=== PATIENT | male | born 2000 | race Caucasian/White ===

== ENCOUNTER 2018-06-08 15:13 | Emergency (ER) | payer SELFPAY ==
[~2018-06-08] VITALS: Ht 190.5 cm; Wt 79.4 kg
[2018-06-08] MEDS ORDERED: KETOROLAC 30 MG/ML VIAL IVP ONE (16:00)
[2018-06-08] MEDS ORDERED: NS IV 1000 ML 1,000 ML IV SCH (16:00)
--- NOTE | 2018-06-08 16:07 | ED Abdominal Pain ---
General Chief Complaint: -Male Stated Complaint: RT GROIN PAIN, LOW BACK PAIN, DARK URINE Nursing Triage Note: Ambulatory to rm 1. Pt reports R sided abdominal pain that began on Friday. Pt reports needing to sometimes strain to urinate which then causes the urine to turn dark. Pt reports same thing happened approximately 1 month ago, but then went away and pt did not seek treatment at that time. Sepsis Screen: No Definite Risk Source of Information: Patient (MARCO KHAN MD) History of Present Illness Date Seen by Provider: Jun 08, 2018 Time Seen by Provider: 15:50 18 y/o M with no PMH presents with RLQ non-radiating, moderate to severe constant abdominal pain. He has noticed dark urination with this. No nausea, vomiting. No change in appetite. No sick contacts. No solid food today. No prior history of kidney stones. (MARCO KHAN MD) Allergies and Home Medications Allergies Coded Allergies: No Known Drug Allergies (Unverified , 06/08/18) Patient Home Medication List Home Medication List Reviewed: Yes (MARCO KHAN MD) Review of Systems Review of Systems Constitutional: No chills, No fever EENTM: No Blurred Vision, No Double Vision Respiratory: Denies Cough, Denies Shortness of Air Cardiovascular: Denies Chest Pain, Denies Edema Gastrointestinal: See HPI, Abdominal Pain; Denies Diarrhea, Denies Nausea, Denies Poor Appetite, Denies Vomiting Genitourinary: Denies Burning, Denies Flank Pain; Hematuria; Denies Pain Musculoskeletal: No back pain, No joint pain, No muscle pain Skin: No lesions, No rash (MARCO KHAN MD) Past Xdlvldy-Jorylr-Azzxim Hx Past Med/Social Hx: Reviewed Nursing Past Med/Soc Hx (MARCO KHAN MD) Patient Social History Alcohol Use: Denies Use Recreational Drug Use: No Smoking Status: Never a Smoker 2nd Hand Smoke Exposure: No Recent Foreign Travel: No Contact w/Someone Who Travel: No Recent Infectious Disease Expo: No Recent Hopitalizations: No Physical Abuse: No Sexual Abuse: No (MARCO KHAN MD) Past Medical History Surgeries: Yes (tubes in ears) Respiratory: No Cardiac: No Neurological: No Genitourinary: No Gastrointestinal: No Musculoskeletal: No Endocrine: No HEENT: No Cancer: No Psychosocial: No Blood Disorders: No Adverse Reaction/Blood Tranf: No (MARCO KHAN MD) Physical Exam Vital Signs Vital Signs - First Documented 06/08/18 15:47 Temp 97.7 Pulse 61 Resp 17 B/P (MAP) 114/65 (81) Pulse Ox 98 O2 Delivery Room Air (RADHIKA ZEPEDA DO) Vital Signs Capillary Refill : Less Than 3 Seconds (MARCO KHAN MD) Height/Weight/BMI Height: 6'3.00" Weight: 175lbs. oz. 79.492538zv; BMI Method:Stated General Appearance: WD/WN, no apparent distress HEENT: PERRL/EOMI, pharynx normal Neck: non-tender, full range of motion, supple, normal inspection Respiratory: chest non-tender, lungs clear, normal breath sounds, no respiratory distress, no accessory muscle use Cardiovascular: normal peripheral pulses, regular rate, rhythm, no edema, no gallop, no JVD, no murmur Gastrointestinal: soft; No no pulsatile mass, No distended; guarding ( voluntary RLQ); No rebound; tenderness (RLQ); No mass Extremities: non-tender, no pedal edema, no calf tenderness Back: normal inspection, no CVA tenderness, no vertebral tenderness Male: no hernia Neurologic/Psychiatric: alert, normal mood/affect, oriented x 3 Skin: normal color, warm/dry (MARCO KHAN MD) Progress/Results/Core Measures Results/Orders Lab Results Laboratory Tests Test 06/08/18 16:10 06/08/18 17:20 Range/Units White Blood Count 5.0 4.3-11.0 10^3/uL Red Blood Count 5.15 4.35-5.85 10^6/uL Hemoglobin 15.6 13.3-17.7 G/DL Hematocrit 46 40-54 % Mean Corpuscular Volume 90 80-99 FL Mean Corpuscular Hemoglobin 30 25-34 PG Mean Corpuscular Hemoglobin Concent 34 32-36 G/DL Red Cell Distribution Width 12.0 10.0-14.5 % Platelet Count 249 130-400 10^3/uL Mean Platelet Volume 9.3 7.4-10.4 FL Neutrophils (%) (Auto) 65 42-75 % Lymphocytes (%) (Auto) 26 12-44 % Monocytes (%) (Auto) 7 0-12 % Eosinophils (%) (Auto) 1 0-10 % Basophils (%) (Auto) 1 0-10 % Neutrophils # (Auto) 3.2 1.8-7.8 X 10^3 Lymphocytes # (Auto) 1.3 1.0-4.0 X 10^3 Monocytes # (Auto) 0.4 0.0-1.0 X 10^3 Eosinophils # (Auto) 0.1 0.0-0.3 10^3/uL Basophils # (Auto) 0.0 0.0-0.1 10^3/uL Sodium Level 142 135-145 MMOL/L Potassium Level 4.5 3.6-5.0 MMOL/L Chloride Level 103 98-107 MMOL/L Carbon Dioxide Level 26 21-32 MMOL/L Anion Gap 13 5-14 MMOL/L Blood Urea Nitrogen 9 7-18 MG/DL Creatinine 0.98 0.60-1.30 MG/DL Estimat Glomerular Filtration Rate > 60 BUN/Creatinine Ratio 9 Glucose Level 99 70-105 MG/DL Calcium Level 10.0 8.5-10.1 MG/DL Corrected Calcium 8.5-10.1 MG/DL Total Bilirubin 1.1 H 0.1-1.0 MG/DL Aspartate Amino Transf (AST/SGOT) 17 5-34 U/L Alanine Aminotransferase (ALT/SGPT) 9 0-55 U/L Alkaline Phosphatase 55 40-136 U/L Total Protein 7.0 6.4-8.2 GM/DL Albumin 4.7 H 3.2-4.5 GM/DL Lipase 30 8-78 U/L Urine Color YELLOW Urine Clarity CLEAR Urine pH 7.5 5-9 Urine Specific [place] 1.015 L 1.016-1.022 Urine Protein NEGATIVE NEGATIVE Urine Glucose (UA) NEGATIVE NEGATIVE Urine Ketones NEGATIVE NEGATIVE Urine Nitrite NEGATIVE NEGATIVE Urine Bilirubin NEGATIVE NEGATIVE Urine Urobilinogen 0.2 NORMAL MG/DL Urine Leukocyte Esterase NEGATIVE NEGATIVE Urine RBC (Auto) 2+ H NEGATIVE Urine RBC 25-50 H /HPF Urine WBC RARE /HPF Urine Crystals PRESENT H /LPF Urine Amorphous Sediment MOD LENY PHOSPHATE H /LPF Urine Bacteria NONE /HPF Urine Casts NONE /LPF Urine Mucus MODERATE H /LPF Urine Culture Indicated NO (RADHIKA ZEPEDA DO) My Orders Orders - RADHIKA ZEPEDA DO Hydrocodone/Apap 5/325 Tablet (Lortab 5 (06/08/18 19:30) (RADHIKA ZEPEDA DO) Medications Given in ED Current Medications Medications Dose Ordered Sig/Marco Route Start Time Stop Time Status Last Admin Dose Admin Ketorolac Tromethamine 30 mg ONCE ONCE IVP 06/08/18 16:00 06/08/18 16:03 DC 06/08/18 16:20 30 MG (RADHIKA ZEPEDA DO) Vital Signs/I&O 06/08/18 15:47 Temp 97.7 Pulse 61 Resp 17 B/P (MAP) 114/65 (81) Pulse Ox 98 O2 Delivery Room Air (RADHIKA ZEPEDA DO) Blood Pressure Mean: 81 Progress Progress Note : Progress Note Primary ddx includes renal stone, appendicitis, vs other. (MARCO KHAN MD) Progress Note : Progress Note Sacha addendum: Patient has hematuria, calcification in the right mid pelvis with intermittent right lower abdominal pain that was constant during the day today. This is very likely ureteral colic even though there is no hydronephrosis seen on the CT scan. It does not appear to be appendicitis based on the intermittent nature of the pain, benign abdominal exam at this time, obvious hematuria. Patient will return for any worsening of his condition, otherwise he will follow up with urology as soon as possible. (RADHIKA ZEPEDA DO) Transfer of Care Time: 18:00 Care transferred to: Pending CT results, UA and re-evaluation (MARCO KHAN MD) Departure Impression Primary Impression: Hematuria Additional Impression: RLQ abdominal pain Disposition: 01 HOME, SELF-CARE Condition: Stable Departure-Patient Inst. Referrals: SAMANTHA LEBLANC MD (PCP) Primary Care Physician DARRYL DAY MD Patient Instructions: Kidney Stones (DC) Scripts Ondansetron (Ondansetron Odt) 8 Mg Tab.rapdis 8 MG PO TID PRN for NAUSEA/VOMITING for 7 Days, #20 TAB Prov: RADHIKA ZEPEDA DO 06/08/18 Hydrocodone/Acetaminophen ([place] 5-325 Tablet) 1 Each Tablet 1 TAB PO Q6H for Pain MDD 10 for 4 Days, #16 TAB Prov: RADHIKA ZEPEDA DO 06/08/18 MARCO KHAN MD Jun 08, 2018 16:07 RADHIKA ZEPEDA DO Jun 08, 2018 19:37
[2018-06-08 16:18] LABS: HEMATOCRIT 46 % (40-54); HEMOGLOBIN 15.6 G/DL (13.3-17.7); MEAN CORPUSCULAR HEMOGLOBIN 30 PG (25-34)
[2018-06-08 16:19] LABS: BASOPHILS % (AUTO) 1 % (0-10); EOSINOPHILS # (AUTO) 0.1 10^3/uL (0.0-0.3); EOSINOPHILS % (AUTO) 1 % (0-10); LYMPHOCYTES # (AUTO) 1.3 X 10^3 (1.0-4.0); LYMPHOCYTES % (AUTO) 26 % (12-44); MEAN CORPUSCULAR HGB CONC 34 G/DL (32-36); MEAN CORPUSCULAR VOLUME 90 FL (80-99); MEAN PLATELET VOLUME 9.3 FL (7.4-10.4); MONOCYTES # (AUTO) 0.4 X 10^3 (0.0-1.0); MONOCYTES % (AUTO) 7 % (0-12); NEUTROPHILS # (AUTO) 3.2 X 10^3 (1.8-7.8); NEUTROPHILS % (AUTO) 65 % (42-75); PLATELET COUNT 249 10^3/uL (130-400)
[2018-06-08 16:37] LABS: BUN/CREATININE RATIO 9; CARBON DIOXIDE 26 MMOL/L (21-32); CHLORIDE 103 MMOL/L (98-107); CREATININE SERUM 0.98 MG/DL (0.60-1.30); GFR ESTIMATED > 60; GLUCOSE 99 MG/DL (70-105); POTASSIUM 4.5 MMOL/L (3.6-5.0); SODIUM 142 MMOL/L (135-145)
[2018-06-08 16:38] LABS: ALANINE AMINOTRANSFERASE 9 U/L (0-55); ALBUMIN 4.7 GM/DL (3.2-4.5); ALKALINE PHOSPHATASE 55 U/L (40-136); BILIRUBIN,TOTAL 1.1 MG/DL (0.1-1.0); LIPASE 30 U/L (8-78)
[2018-06-08 18:17] LABS: AMORPHOUS SEDIMENT,UR MOD AMOR PHOSPHATE /LPF; BILIRUBIN,URINE NEGATIVE (NEGATIVE); CLARITY,URINE CLEAR; COLOR,URINE YELLOW; GLUCOSE, URINE (UA) NEGATIVE (NEGATIVE); KETONES,URINE NEGATIVE (NEGATIVE); LEUKOCYTE ESTERASE ,URINE NEGATIVE (NEGATIVE); NITRITE,URINE NEGATIVE (NEGATIVE); PH,URINE 7.5 (5-9); PROTEIN,URINE NEGATIVE (NEGATIVE); RBC,URINE 25-50 /HPF; UROBILINOGEN,URINE 0.2 MG/DL (NORMAL); WBC,URINE RARE /HPF
--- NOTE | 2018-06-08 19:04 | Diagnostic Imaging Report ---
PROCEDURE: CT abdomen and pelvis without contrast. TECHNIQUE: Multiple contiguous axial images were obtained through the abdomen and pelvis without the use of intravenous contrast. INDICATION: Right groin pain, dysuria. FINDINGS: The lung bases are clear. The liver appears normal. The gallbladder is present. The pancreas is normal. The spleen is not enlarged. The kidneys and adrenals appear normal. The aorta and IVC appear normal. The small bowel is not dilated. The colon is unremarkable. The appendix is normal. There is no retroperitoneal free air or free fluid. There is no lymphadenopathy. There are no pathologic fluid collections. There is a 3 mm calcification in the right midpelvis between the iliac artery and vein. This is probably a phlebolith. IMPRESSION: There is no evidence for hydronephrosis or appendicitis. Calcification in the right mid pelvis is likely a phlebolith rather than a ureteral calculus as there is no evidence of ureteral dilatation. Dictated by: Dictated on workstation # [id number]
[2018-06-08] MEDS ORDERED: HYDROcodone/APAP 5 MG/325 MG (LORTAB) TAB PO STA (19:30)
--- NOTE | 2018-06-08 19:30 | NUR ---
report given to williams cain
[2018-06-08] MEDS ORDERED: HYDR-4226 PO (19:35)
[2018-06-08] MEDS ORDERED: ONDA8TAB13 PO (19:35)
[2018-06-08 19:43] VITALS: BP 129/71
== END 2018-06-08 19:43 | disposition home or self-care (01) ==
LOC: ER FS 15:16
DX: R31.9 Hematuria, unspecified (principal); R10.31 Right lower quadrant pain; Z96.22 Myringotomy tube(s) status
CPT/HCPCS: 36415; 74176; 80053; 81000; 83690; 85025

== ENCOUNTER 2018-06-29 08:07 | Emergency (ER) | payer SELFPAY ==
[~2018-06-29] VITALS: Ht 190.5 cm; Wt 79.4 kg
[~2018-06-29 08:07] MED LIST: HYDR-4226 PO; ONDA8TAB13 PO
[2018-06-29] MEDS ORDERED: fentaNYL INJECTION 100 MCG/2 ML AMP IVP STA ×2 (08:52→09:40)
[2018-06-29] MEDS ORDERED: NS IV 1000 ML 1,000 ML IV STA (08:52)
[2018-06-29] MEDS ORDERED: ONDANSETRON 4 MG/2 ML (SDV) Z0FRAN IVP ONE (09:00)
--- NOTE | 2018-06-29 09:00 | ED Abdominal Pain ---
General Chief Complaint: Abdominal/GI Problems Stated Complaint: LRQ PAIN; VOMITING; SUPRAPUBIC PAIN Nursing Triage Note: ARRIVED VIA AMB TO ROOM 06. COMPLAINS OF LOWER MID ABD PAIN THAT HAS MOVED TO RLQ STARTING AT 0030. ALSO COMPLAINS OF N/V. Sepsis Screen: No Definite Risk Source of Information: Patient, Family Exam Limitations: No Limitations History of Present Illness Date Seen by Provider: Jun 29, 2018 Time Seen by Provider: 08:42 Initial Comments Here with right lower quadrant pain that started about 0030 this morning. Associated with nausea and vomiting. Was seen about a month ago for similar but different complaints and thought maybe he had a kidney stone. Had hematuria at that time. Friday he states this is different type pain and much worse. It started suprapubic or periumbilical and now has moved to the right side. It hurts when he moves or walks. He took ibuprofen 800 mg 2 hours ago and has had no relief pain. Timing/Duration: Other (8 hours) Severity/Quality: Moderate, Severe, Aching Location: Periumbilical, Suprapubic Radiation: [place] Activities at Onset: None Modifying Factors: Worsens With Movement Associated Symptoms: No Back Pain, No Fever/Chills; Nausea/Vomiting; No Shortness of Air, No Swelling/Mass in Abdomen, No Weakness Allergies and Home Medications Allergies Coded Allergies: No Known Drug Allergies (Unverified , 06/08/18) Home Medications Hydrocodone/Acetaminophen 1 Each Tablet, 1 TAB PO Q6H Prescribed by: RADHIKA ZEPEDA on 06/08/181934 Ondansetron 8 Mg Tab.rapdis, 8 MG PO TID PRN for NAUSEA/VOMITING Prescribed by: RADHIKA ZEPEDA on 06/08/181934 Patient Home Medication List Home Medication List Reviewed: Yes Review of Systems Review of Systems Constitutional: see HPI; No chills, No fever EENTM: No Symptoms Reported Respiratory: No Symptoms Reported Cardiovascular: No Symptoms Reported Gastrointestinal: See HPI, Abdominal Pain, Diarrhea, Nausea, Vomiting Genitourinary: No Symptoms Reported Musculoskeletal: no symptoms reported Skin: no symptoms reported Psychiatric/Neurological: No Symptoms Reported All Other Systems Reviewed Negative Unless Noted: Yes Past Jcdnhfn-Xfgfho-Swcyck Hx Past Med/Social Hx: Reviewed Nursing Past Med/Soc Hx Patient Social History Alcohol Use: Occasionally Uses Recreational Drug Use: No Smoking Status: Never a Smoker 2nd Hand Smoke Exposure: No Recent Foreign Travel: No Contact w/Someone Who Travel: No Recent Infectious Disease Expo: No Recent Hopitalizations: No Past Medical History Surgeries: Yes (tubes in ears) Respiratory: No Cardiac: No Neurological: No Genitourinary: Yes Kidney Stones Gastrointestinal: No Musculoskeletal: No Endocrine: No HEENT: No Cancer: No Psychosocial: No Integumentary: No Blood Disorders: No Adverse Reaction/Blood Tranf: No Family Medical History Reviewed Nursing Family Hx Physical Exam Vital Signs Vital Signs - First Documented 06/29/18 08:35 Temp 97.5 Pulse 52 Resp 16 B/P (MAP) 143/82 (102) Pulse Ox 96 O2 Delivery Room Air Capillary Refill : Less Than 3 Seconds Height/Weight/BMI Height: 6'3.00" Weight: 175lbs. oz. 79.350218ta; BMI Method:Stated General Appearance: WD/WN, mild distress HEENT: PERRL/EOMI, pharynx normal Neck: full range of motion, supple Respiratory: lungs clear, normal breath sounds Cardiovascular: regular rate, rhythm, no murmur Peripheral Pulses: 2+ Dorsalis Pedis (R), 2+ Left Dors-Pedis (L), 2+ Radial Pulses (R), 2+ Radial Pulses (L) Gastrointestinal: soft, guarding (right lower quadrant); No rebound; tenderness (suprapubic and right lower quadrant) Extremities: non-tender, normal inspection Back: normal inspection, no vertebral tenderness Neurologic/Psychiatric: alert, oriented x 3 Skin: normal color, warm/dry Progress/Results/Core Measures Results/Orders Lab Results Laboratory Tests Test 06/29/18 08:42 06/29/18 08:55 Range/Units White Blood Count 14.6 H 4.3-11.0 10^3/uL Red Blood Count 5.06 4.35-5.85 10^6/uL Hemoglobin 15.4 13.3-17.7 G/DL Hematocrit 44 40-54 % Mean Corpuscular Volume 88 80-99 FL Mean Corpuscular Hemoglobin 30 25-34 PG Mean Corpuscular Hemoglobin Concent 35 32-36 G/DL Red Cell Distribution Width 12.0 10.0-14.5 % Platelet Count 336 130-400 10^3/uL Mean Platelet Volume 8.8 7.4-10.4 FL Neutrophils (%) (Auto) 90 H 42-75 % Lymphocytes (%) (Auto) 6 L 12-44 % Monocytes (%) (Auto) 3 0-12 % Eosinophils (%) (Auto) 0 0-10 % Basophils (%) (Auto) 0 0-10 % Neutrophils # (Auto) 13.2 H 1.8-7.8 X 10^3 Lymphocytes # (Auto) 0.8 L 1.0-4.0 X 10^3 Monocytes # (Auto) 0.5 0.0-1.0 X 10^3 Eosinophils # (Auto) 0.0 0.0-0.3 10^3/uL Basophils # (Auto) 0.1 0.0-0.1 10^3/uL Neutrophils % (Manual) 81 % Lymphocytes % (Manual) 6 % Monocytes % (Manual) 5 % Eosinophils % (Manual) 0 % Basophils % (Manual) 0 % Band Neutrophils 8 % Blood Morphology Comment NORMAL Urine Color YELLOW Urine Clarity CLEAR Urine pH 6.5 5-9 Urine Specific [place] 1.025 H 1.016-1.022 Urine Protein TRACE NEGATIVE Urine Glucose (UA) NEGATIVE NEGATIVE Urine Ketones 1+ H NEGATIVE Urine Nitrite NEGATIVE NEGATIVE Urine Bilirubin 1+ H NEGATIVE Urine Urobilinogen 0.2 NORMAL MG/DL Urine Leukocyte Esterase NEGATIVE NEGATIVE Urine RBC (Auto) TRACE H NEGATIVE Urine RBC NONE /HPF Urine WBC RARE /HPF Urine Squamous Epithelial Cells 0-2 /HPF Urine Crystals PRESENT H /LPF Urine Calcium Oxalate Crystals 1+ /LPF Urine Bacteria NONE /HPF Urine Casts NONE /LPF Urine Mucus MODERATE H /LPF Urine Culture Indicated NO My Orders Orders - TETE FRANCIS MD Cbc No Diff (06/29/18 08:52) Cbc With Automated Diff (06/29/18 08:52) Ua Culture If Indicated (06/29/18 08:52) Ondansetron Injection (Zofran Injectio (06/29/18 09:00) Ns Iv 1000 Ml (Sodium Chloride 0.9%) (06/29/18 08:52) Saline Lock/Iv-Start (06/29/18 08:52) Fentanyl Injection (Sublimaze Injection (06/29/18 08:52) Manual Differential (06/29/18 08:42) Ct Abd/Pelv W (Appendicitis) (06/29/18 09:35) Fentanyl Injection (Sublimaze Injection (06/29/18 09:40) Iohexol Injection (Omnipaque 350 Mg/Ml 1 (06/29/18 10:00) Received Contrast (Hold Metformin- Contr (06/29/18 10:00) Sodium Chloride Flush (Catheter Flush Sy (06/29/18 10:00) Ns (Ivpb) (Sodium Chloride 0.9% Ivpb Bag (06/29/18 10:00) Medications Given in ED Current Medications Medications Dose Ordered Sig/Marco Route Start Time Stop Time Status Last Admin Dose Admin Iohexol 100 ml ONCE ONCE IV 06/29/18 10:00 06/29/18 10:15 DC 06/29/18 10:03 100 ML Ondansetron HCl 4 mg ONCE ONCE IVP 06/29/18 09:00 06/29/18 09:01 DC 06/29/18 09:01 4 MG Sodium Chloride 10 ml NEEDED PRN IV 06/29/18 10:00 06/29/18 10:03 10 ML Sodium Chloride 50 ml ONCE ONCE IV 06/29/18 10:00 06/29/18 10:15 DC 06/29/18 10:03 50 ML Vital Signs/I&O 06/29/18 08:35 Temp 97.5 Pulse 52 Resp 16 B/P (MAP) 143/82 (102) Pulse Ox 96 O2 Delivery Room Air Blood Pressure Mean: 102 Progress Progress Note : Progress Note Seen and evaluated. IV, labs, UA, normal saline 1 L bolus, Zofran 4 mg IV and fentanyl 50 g IV ordered. Monitor patient. 1030: Patient did get fentanyl [address] results noted. He does feel better now. This is likely related to stone and appendix is normal. We'll continue outpatient treatment for this and have him follow-up with urology. This was discussed with the patient. Discharged home with return precautions. Patient verbalize understanding instructions and agreement with plan. Diagnostic Imaging Diagonstic Imaging: CT Plain Films/CT/US/NM/MRI: abdomen, pelvis Comments NAME: JOE MOJICA MED REC#: [id number] PT STATUS: REG ER : 2000 PHYSICIAN: TETE FRANCIS MD ADMIT DATE: 06/29/18/ER FS Draft Date of Exam:06/29/18 CT ABD/PELV W (APPENDICITIS) PROCEDURE: CT abdomen and pelvis with contrast, rule out appendicitis. TECHNIQUE: Multiple contiguous axial images were obtained through the abdomen and pelvis after the administration of intravenous contrast. INDICATION: Right lower quadrant pain. Correlation is made with prior CT from 06/08/2018. The lung bases are clear. No discrete liver mass is identified. Gallbladder is unremarkable. No biliary ductal dilatation is seen. The pancreas and spleen are unremarkable. No adrenal mass is identified. The left kidney is unremarkable. Right kidney does show moderate hydroureteronephrosis. The dilated right ureter is traced into the pelvis where there is a 3-4 mm calculus in the distal right ureter just proximal to the UVJ. This likely corresponds to a calculus noted in the upper right pelvis on prior CT which has now progressed down the right ureter more distally. Previous CT did not demonstrate any evidence of hydronephrosis. Left-sided renal collecting system and ureter unremarkable. Bladder is unremarkable. Small and large bowel loops are normal caliber. No ascites. The appendix is unremarkable. IMPRESSION: 3-4 mm distal right ureteric calculus producing mild hydroureteronephrosis. Dictated on workstation # [id number] Dict: 06/29/18 1014 Trans: 06/29/18 1020 CV [id number] Interpreted by: BEV MAHAN MD Electronically signed by: Departure Impression Primary Impression: Right ureteral stone Disposition: HOME, SELF-CARE Condition: Improved Departure-Patient Inst. Decision time for Depature: 10:51 Referrals: SAMANTHA LEBLANC MD (PCP/Family) Primary Care Physician Patient Instructions: Kidney Stones (DC), How to Strain Your Urine Add. Discharge Instructions: All discharge instructions reviewed with patient and/or family. Voiced understanding. Strain your urine with each urination. Drink plenty of fluids. Take medications as directed. You should take ibuprofen 800 mg every 8 hours as needed for pain and stay on that for the next 3 days and then as needed. You should call the urologist today to make appointment. Return for worse pain, fever, vomiting, weakness, breathing problems or other concerns as needed. Scripts Ondansetron (Ondansetron Odt) 4 Mg Tab.rapdis 4 MG PO Q6H PRN for NAUSEA/VOMITING, #8 TAB 0 Refills Prov: TETE FRANCIS MD 06/29/18 Hydrocodone Bit/Acetaminophen (Hydrocodone/Acetaminophen 5/325mg Tablet) 1 Tab Tab 1 EACH PO Q4-6HR PRN for PAIN-MODERATE MDD 10, #12 TAB 0 Refills Prov: TETE FRANCIS MD 06/29/18 Cephalexin (Cephalexin) 500 Mg Tablet 500 MG PO BID, #14 TAB 0 Refills Prov: TETE FRANCIS MD 06/29/18 TETE FRANCIS MD Jun 29, 2018 08:59
[2018-06-29 09:03] LABS: BASOPHILS % (AUTO) 0 % (0-10); EOSINOPHILS % (AUTO) 0 % (0-10); HEMATOCRIT 44 % (40-54); HEMOGLOBIN 15.4 G/DL (13.3-17.7); LYMPHOCYTES % (AUTO) 6 % (12-44); MEAN CORPUSCULAR HEMOGLOBIN 30 PG (25-34); MEAN CORPUSCULAR HGB CONC 35 G/DL (32-36); MEAN CORPUSCULAR VOLUME 88 FL (80-99); MEAN PLATELET VOLUME 8.8 FL (7.4-10.4); MONOCYTES % (AUTO) 3 % (0-12); NEUTROPHILS # (AUTO) 13.2 X 10^3 (1.8-7.8); NEUTROPHILS % (AUTO) 90 % (42-75); PLATELET COUNT 336 10^3/uL (130-400); WHITE BLOOD COUNT 14.6 10^3/uL (4.3-11.0)
[2018-06-29 09:04] LABS: BASOPHILS # (AUTO) 0.1 10^3/uL (0.0-0.1); LYMPHOCYTES # (AUTO) 0.8 X 10^3 (1.0-4.0); MONOCYTES # (AUTO) 0.5 X 10^3 (0.0-1.0)
[2018-06-29 09:26] LABS: BILIRUBIN,URINE 1+ (NEGATIVE); CLARITY,URINE CLEAR; COLOR,URINE YELLOW; GLUCOSE, URINE (UA) NEGATIVE (NEGATIVE); KETONES,URINE 1+ (NEGATIVE); NITRITE,URINE NEGATIVE (NEGATIVE); PH,URINE 6.5 (5-9); PROTEIN,URINE TRACE (NEGATIVE)
[2018-06-29 09:27] LABS: CALCIUM OXALATE CRYSTALS,UR 1+ /LPF; LEUKOCYTE ESTERASE ,URINE NEGATIVE (NEGATIVE); SQUAMOUS EPITHELIAL CELL,UR 0-2 /HPF; UROBILINOGEN,URINE 0.2 MG/DL (NORMAL); WBC,URINE RARE /HPF
[2018-06-29] MEDS ORDERED: IOHEXOL 350 MG/ML 100 ML (OMNIPAQUE 350) VIAL IV ONE (10:00)
[2018-06-29] MEDS ORDERED: HOLD METFORMIN - RECEIVED CONTRAST 20 ML VIAL IV SCH (10:00)
[2018-06-29] MEDS ORDERED: CATHETER FLUSH 10 ML SYR IV PRN (10:00)
[2018-06-29] MEDS ORDERED: NS 50 ML (IVPB) BAG IV ONE (10:00)
[2018-06-29 10:07] LABS: BAND NEUTROPHILS 8 %; BASOPHILS % (MANUAL) 0 %; EOSINOPHILS % (MANUAL) 0 %; LYMPHOCYTES % (MANUAL) 6 %; MONOCYTES % (MANUAL) 5 %; NEUTROPHILS % (MANUAL) 81 %; RBC MORPH NORMAL
--- NOTE | 2018-06-29 10:21 | Diagnostic Imaging Report ---
PROCEDURE: CT abdomen and pelvis with contrast, rule out appendicitis. TECHNIQUE: Multiple contiguous axial images were obtained through the abdomen and pelvis after the administration of intravenous contrast. INDICATION: Right lower quadrant pain. Correlation is made with prior CT from 06/08/2018. The lung bases are clear. No discrete liver mass is identified. Gallbladder is unremarkable. No biliary ductal dilatation is seen. The pancreas and spleen are unremarkable. No adrenal mass is identified. The left kidney is unremarkable. Right kidney does show moderate hydroureteronephrosis. The dilated right ureter is traced into the pelvis where there is a 3-4 mm calculus in the distal right ureter just proximal to the UVJ. This likely corresponds to a calculus noted in the upper right pelvis on prior CT which has now progressed down the right ureter more distally. Previous CT did not demonstrate any evidence of hydronephrosis. Left-sided renal collecting system and ureter unremarkable. Bladder is unremarkable. Small and large bowel loops are normal caliber. No ascites. The appendix is unremarkable. IMPRESSION: 3-4 mm distal right ureteric calculus producing mild hydroureteronephrosis. Dictated by: Dictated on workstation # [id number]
--- NOTE | 2018-06-29 10:28 | NUR ---
IN TALKING TO PT AT THIS TIME. PT STATES HE IS TIRED BUT HIS PAIN IS BETTER AT THIS TIME.
[2018-06-29] MEDS ORDERED: CEPH500T PO (10:53)
[2018-06-29] MEDS ORDERED: ACHD5005 PO (10:53)
[2018-06-29] MEDS ORDERED: ONDA4TAB11 PO (10:54)
[2018-06-29 11:08] VITALS: BP 143/82
== END 2018-06-29 11:08 | disposition home or self-care (01) ==
LOC: EDUNIT# 08:07 → ER FS 08:08
DX: N13.2 Hydronephrosis with renal and ureteral calculous obstruction (principal); Z96.22 Myringotomy tube(s) status; Z87.442 Personal history of urinary calculi
CPT/HCPCS: 36415; 74177; 81000; 85007; 85027; 96361; 96374; 96375; 96376

== ENCOUNTER 2021-06-17 19:17 | Emergency (ER) | payer SELFPAY ==
[~2021-06-17] VITALS: Ht 190.5 cm; Wt 86.3 kg
[~2021-06-17 19:17] MED LIST changes: +ACHD5005 PO; +CEPH500T PO; +ONDA4TAB11 PO
[2021-06-17] MEDS ORDERED: ONDANSETRON 4 MG (ZOFRAN) ORAL DISSOLVE TAB PO STA (19:39)
--- NOTE | 2021-06-17 19:54 | ED GI ---
General Chief Complaint: Abdominal/GI Problems Stated Complaint: LOW BLOOD SUGAR Nursing Triage Note: Patient arrives POV accompanied by family placing patient in a wheelchair to register for possible low blood sugar symptom. The reported symptoms was 1700 becoming nauseated and vomiting and became weak and family arrived attempting to do blood sugar on patient then giving OJ and Apple juice. Pt is not diabetic and ate large lunch [phone]. Pt has been active [facility]. Source of Information: Patient Exam Limitations: No Limitations History of Present Illness Date Seen by Provider: Jun 17, 2021 Time Seen by Provider: 19:25 Initial Comments Patient is a 18-year-old male who presents with multiple medical symptoms. Patient's symptoms began approximately an hour and half prior to ED arrival repo rts feeling nauseated lightheaded with blurred vision in his left eye while driving. Patient said he felt weak and diaphoretic. He pulled over and was unable to stand without assistance upon leaving his vehicle. His family members gave him "orange juice and apple juice and his symptoms quickly resolved. Patient is not diabetic and does not have history of hypoglycemia. Patient has been active [facility] for hours earlier today and has not eaten several hours. He denies symptoms during [facility] and is otherwise healthy. He takes no daily medications. He denies excessive caffeine use, drugs or history of seizure disorder. No fever, cough, sore throat, vomiting, diarrhea. No other symptoms or complaints. Timing/Duration: 1-3 Hours Severity/Quality: Moderate Location: Other Radiation: Other Activities at Onset: Other Modifying Factors: Improves With Other Associated Symptoms: Other Allergies and Home Medications Allergies Coded Allergies: No Known Drug Allergies (Unverified , 06/08/18) Patient Home Medication List Home Medication List Reviewed: Yes No Active Prescriptions or Reported Meds Review of Systems Review of Systems Constitutional: see HPI EENTM: See HPI Respiratory: See HPI Gastrointestinal: See HPI Genitourinary: See HPI Musculoskeletal: see HPI Skin: see HPI Psychiatric/Neurological: See HPI Endocrine: See HPI Hematologic/Lymphatic: See HPI All Other Systems Reviewed Negative Unless Noted: Yes Past Azlsgib-Idedac-Fsinzl Hx Patient Social History Tobacco Use?: Yes Smoking Status: Never a Smoker Use of E-Cig and/or Vaping dev: No Use of E-Cig and/or Vaping Meng: Former User Substance use?: No Alcohol Use?: Yes Alcohol Frequency: Once in a while Pt feels they are or have been: No Past Medical History Surgeries: Yes (tubes in ears) Respiratory: No Cardiac: No Neurological: No Genitourinary: Yes Kidney Stones Gastrointestinal: No Musculoskeletal: No Endocrine: No HEENT: No Cancer: No Psychosocial: No Integumentary: No Blood Disorders: No Adverse Reaction/Blood Tranf: No Physical Exam Vital Signs Vital Signs - First Documented 06/17/21 19:22 Temp 36.8 Pulse 66 Resp 16 B/P (MAP) 124/76 (92) Pulse Ox 100 O2 Delivery Room Air Capillary Refill : Less Than 3 Seconds Height/Weight/BMI Height: 6'3.00" Weight: 175lbs. oz. [id number]; 23.00 BMI Method:Stated General Appearance: WD/WN, no apparent distress HEENT: PERRL/EOMI, normal ENT inspection, pharynx normal Neck: non-tender, full range of motion, supple Respiratory: lungs clear Cardiovascular: normal peripheral pulses, regular rate, rhythm Gastrointestinal: non tender, soft Back: normal inspection, no CVA tenderness Neurologic/Psychiatric: scrap handler II-XII nml as tested, alert, normal mood/affect, oriented x 3 Skin: normal color Focused Exam Sepsis Stage: Ruled Out Progress/Results/Core Measures Results/Orders Lab Results Laboratory Tests Test 06/17/21 19:24 06/17/21 21:00 Range/Units Glucometer 106 70-110 MG/DL White Blood Count 13.2 H 4.3-11.0 10^3/uL Red Blood Count 4.90 4.30-5.52 10^6/uL Hemoglobin 14.9 13.3-17.7 g/dL Hematocrit 42 40-54 % Mean Corpuscular Volume 86 80-99 fL Mean Corpuscular Hemoglobin 30 25-34 pg Mean Corpuscular Hemoglobin Concent 35 32-36 g/dL Red Cell Distribution Width 11.6 10.0-14.5 % Platelet Count 282 130-400 10^3/uL Mean Platelet Volume 8.6 L 9.0-12.2 fL Immature Granulocyte % (Auto) 0 % Neutrophils (%) (Auto) 79 H 42-75 % Lymphocytes (%) (Auto) 10 L 12-44 % Monocytes (%) (Auto) 9 0-12 % Eosinophils (%) (Auto) 0 0-10 % Basophils (%) (Auto) 0 0-10 % Neutrophils # (Auto) 10.4 H 1.8-7.8 10^3/uL Lymphocytes # (Auto) 1.4 1.0-4.0 10^3/uL Monocytes # (Auto) 1.2 H 0.0-1.0 10^3/uL Eosinophils # (Auto) 0.1 0.0-0.3 10^3/uL Basophils # (Auto) 0.0 0.0-0.1 10^3/uL Immature Granulocyte # (Auto) 0.1 0.0-0.1 10^3/uL Sodium Level 142 135-145 MMOL/L Potassium Level 3.5 L 3.6-5.0 MMOL/L Chloride Level 104 98-107 MMOL/L Carbon Dioxide Level 21 21-32 MMOL/L Anion Gap 17 H 5-14 MMOL/L Blood Urea Nitrogen 11 7-18 MG/DL Creatinine 0.99 0.60-1.30 MG/DL Estimat Glomerular Filtration Rate 110 BUN/Creatinine Ratio 11 Glucose Level 99 70-105 MG/DL Calcium Level 9.5 8.5-10.1 MG/DL Corrected Calcium 8.5-10.1 MG/DL Total Bilirubin 1.3 H 0.1-1.0 MG/DL Aspartate Amino Transf (AST/SGOT) 21 5-34 U/L Alanine Aminotransferase (ALT/SGPT) 13 0-55 U/L Alkaline Phosphatase 60 40-136 U/L Total Protein 6.8 6.4-8.2 GM/DL Albumin 4.6 H 3.2-4.5 GM/DL My Orders Orders - ALBA HOLLAND DO Ondansetron Oral Dissolve Tab (Zofran (06/17/21 19:39) Ekg Tracing (06/17/21 19:40) Accucheck Stat ONCE (06/17/21 19:41) Ns Iv 1000 Ml (Sodium Chloride 0.9%) (06/17/21 20:45) Prochlorperazine Injection (Compazine In (06/17/21 20:45) Ondansetron Injection (Zofran Injectio (06/17/21 20:45) Ct Head Wo (06/17/21 20:36) Cbc With Automated Diff (06/17/21 20:36) Comprehensive Metabolic Panel (06/17/21 20:36) Famotidine Injection (Pepcid Injection) (06/17/21 20:45) Medications Given in ED Current Medications Medications Dose Ordered Sig/Marco Route Start Time Stop Time Status Last Admin Dose Admin Famotidine 20 mg ONCE ONCE IVP 06/17/21 20:45 06/17/21 20:58 DC 06/17/21 21:10 20 MG Ondansetron HCl 4 mg ONCE ONCE IVP 06/17/21 20:45 06/17/21 20:58 DC 06/17/21 21:09 4 MG Prochlorperazine Edisylate 10 mg ONCE ONCE IV 06/17/21 20:45 06/17/21 20:46 DC 06/17/21 20:39 10 MG Vital Signs/I&O 06/17/21 19:22 Temp 36.8 Pulse 66 Resp 16 B/P (MAP) 124/76 (92) Pulse Ox 100 O2 Delivery Room Air Blood Pressure Mean: 92 Departure Communication (Admissions) CT head: No acute findings. Blood sugar 107. EKG normal sinus rhythm. vital signs reassuring. Patient symptoms improved after orange juice prior to ED arrival. Clinically, his symptoms are consistent with hyperglycemia. However, a blood sugar was not immediately available so an alternative diagnosis remains possible. Recommendations supportive care watchful waiting and PCP follow-up. In the interim, the patient is encouraged to eat frequent snacks. Return precautions reviewed. Patient verbalizes understanding agreement with discharge instructions prior to departure. Impression Primary Impression: Nausea and vomiting Disposition: HOME, SELF-CARE Condition: Stable Departure-Patient Inst. Decision time for Depature: 19:55 Referrals: NO,LOCAL PHYSICIAN (PCP/Family) Primary Care Physician Patient Instructions: Nausea and Vomiting, Adult Add. Discharge Instructions: You were evaluated in the emergency department for nausea and vomiting. The exact cause of your symptoms has not been determined but may be related to a low blood sugar and/or stomach virus prevalent in the community. Please take newly prescribed medications as directed drink clear liquids with crackers only for the next 4 to 6 hours then progressed to soft mechanical diet as tolerated. Follow-up with your PCP in 2 to 3 days if symptoms persist. Return to the ED if new or worsening symptoms. All discharge instructions reviewed with patient and/or family. Voiced understanding. Scripts Prochlorperazine Maleate (Compazine) 10 Mg Tablet 10 MG PO Q12H, #10 TAB Prov: ALBA HOLLAND DO 06/17/21 ALBA HOLLAND DO Jun 17, 2021 19:54
[2021-06-17] MEDS ORDERED: ONDANSETRON 4 MG/2 ML (SDV) Z0FRAN IVP ONE (20:45)
[2021-06-17] MEDS ORDERED: NS IV 1000 ML 1,000 ML IV SCH (20:45)
[2021-06-17] MEDS ORDERED: PROCHLORPERAZINE 10 MG/2ML INJ (COMPAZINE) IV ONE (20:45)
[2021-06-17] MEDS ORDERED: FAMOTIDINE 20MG/2ML IV (PEPCID) IVP ONE (20:45)
[2021-06-17 21:06] LABS: BASOPHILS % (AUTO) 0 % (0-10); EOSINOPHILS # (AUTO) 0.1 10^3/uL (0.0-0.3); EOSINOPHILS % (AUTO) 0 % (0-10); HEMATOCRIT 42 % (40-54); HEMOGLOBIN 14.9 g/dL (13.3-17.7); LYMPHOCYTES # (AUTO) 1.4 10^3/uL (1.0-4.0); LYMPHOCYTES % (AUTO) 10 % (12-44); MEAN CORPUSCULAR HEMOGLOBIN 30 pg (25-34); MEAN CORPUSCULAR HGB CONC 35 g/dL (32-36); MEAN CORPUSCULAR VOLUME 86 fL (80-99); MEAN PLATELET VOLUME 8.6 fL (9.0-12.2); MONOCYTES # (AUTO) 1.2 10^3/uL (0.0-1.0); MONOCYTES % (AUTO) 9 % (0-12); NEUTROPHILS # (AUTO) 10.4 10^3/uL (1.8-7.8); NEUTROPHILS % (AUTO) 79 % (42-75); PLATELET COUNT 282 10^3/uL (130-400); WHITE BLOOD COUNT 13.2 10^3/uL (4.3-11.0)
[2021-06-17 21:26] LABS: ALANINE AMINOTRANSFERASE 13 U/L (0-55); ALBUMIN 4.6 GM/DL (3.2-4.5); ALKALINE PHOSPHATASE 60 U/L (40-136); BILIRUBIN,TOTAL 1.3 MG/DL (0.1-1.0); BUN/CREATININE RATIO 11; CALCIUM 9.5 MG/DL (8.5-10.1); CARBON DIOXIDE 21 MMOL/L (21-32); CHLORIDE 104 MMOL/L (98-107); CREATININE SERUM 0.99 MG/DL (0.60-1.30); GFR ESTIMATED 110; GLUCOSE 99 MG/DL (70-105); POTASSIUM 3.5 MMOL/L (3.6-5.0); SODIUM 142 MMOL/L (135-145); TOTAL PROTEIN 6.8 GM/DL (6.4-8.2)
--- NOTE | 2021-06-17 21:30 | Diagnostic Imaging Report ---
EXAMINATION: CT head without contrast. TECHNIQUE: Multiple contiguous axial images were obtained through the brain without the use of intravenous contrast. All CT scans use one or more of the following dose optimizing techniques: automated exposure control, MA and/or KvP adjustment based on patient size and exam type or iterative reconstruction. HISTORY: Headache. COMPARISON: None available. FINDINGS: The motley-white matter differentiation is normal. No mass effect or midline shift. The ventricles are normal in size and configuration. Basilar cisterns are patent. There are no intra-axial or extra-axial fluid collections. There is no intracranial hemorrhage. The orbits are normal. Paranasal sinuses are normal. Mastoid air cells are clear. No soft tissue abnormality is seen. No osseus lesions or fractures are seen. IMPRESSION: No acute intracranial abnormality. Dictated by: Dictated on workstation # [id number]
[2021-06-17] MEDS ORDERED: PROC-1 PO (22:07)
[2021-06-17] MEDS ORDERED: RX-ONDANSETRON 4 MG ODT (ZOFRAN) PPK #4 ONE (22:15)
[2021-06-17] MEDS ORDERED: RX-ONDANSETRON 4 MG ODT (ZOFRAN) PPK #4 PO STA (22:19)
[2021-06-17 22:24] VITALS: BP 135/85
== END 2021-06-17 22:24 | disposition home or self-care (01) ==
LOC: EDUNIT# 19:17 → ER FS 19:19
DX: R11.2 Nausea with vomiting, unspecified (principal); Z72.0 Tobacco use
CPT/HCPCS: 36415; 70450; 80053; 82947; 85025; 93005

== ENCOUNTER 2022-11-25 09:48 | Emergency (ER) | payer OTHER ==
[~2022-11-25] VITALS: Ht 190.5 cm; Wt 92.7 kg
[~2022-11-25 09:48] MED LIST changes: +PROC-1 PO
[2022-11-25 09:52] VITALS: BP 135/78
[2022-11-25] MEDS ORDERED: ONDANSETRON INJECTION 4 MG/2 ML (SDV) IVP STA (09:58)
[2022-11-25] MEDS ORDERED: NS IV 1000 ML 1,000 ML IV STA (09:58)
[2022-11-25] MEDS ORDERED: KETOROLAC INJ 15 MG/ML VIAL IVP STA (09:58)
--- NOTE | 2022-11-25 10:06 | ED Abdominal Pain ---
General Chief Complaint: Abdominal/GI Problems Stated Complaint: LLQ PAIN Source of Information: Patient History of Present Illness Date Seen by Provider: Nov 25, 2022 Time Seen by Provider: 09:51 Initial Comments 22-year-old male presenting with complaints of left flank pain down into his left lower quadrant. He states that this started a few days ago and started in his back. Today he had 2 episodes of vomiting due to the pain. He has severe pain in the left lower quadrant now. He denies any change in his bowels. He has noticed his urine was a little darker colored. He denies fever, chills, diarrhea, definite blood in his urine, blood in his stools. He denies any prior abdominal surgeries. He has no allergies to medicine and does not take any medications regularly. He states he did try taking some ibuprofen approximately an hour prior to arrival. He was still having severe pain. He feels like he did keep the ibuprofen down and did not vomit them. Timing/Duration: 2-3 Days Severity/Quality: Severe, Sharp, Stabbing Location: LLQ, Flank (initially Left flank over the last 2 days but now LLQ primarily) Radiation: LLQ Activities at Onset: None Modifying Factors: Worsens With Urinating Associated Symptoms: Back Pain; No Chest Pain, No Diaphoresis, No Fever/Chills, No Fatigue, No Headache, No Heartburn; Nausea/Vomiting; No Rash, No Shortness of Air, No Swelling/Mass in Abdomen, No Syncope, No Weakness Allergies and Home Medications Allergies Coded Allergies: No Known Drug Allergies (Unverified , 06/08/18) Patient Home Medication List Home Medication List Reviewed: Yes Hydrocodone/Acetaminophen (Hydrocodone-Acetamin 5-325 mg) 5 Mg-325 Mg Tablet, 1 TAB PO Q4H PRN for PAIN SEVERE Prescribed by: NIRU FELTON on 11/25/22 110 Prochlorperazine Maleate (Compazine) 10 Mg Tablet, 10 MG PO Q12H Prescribed by: ALBA HOLLAND on 06/17/212206 Tamsulosin HCl (Flomax) 0.4 Mg Cap, 0.4 MG PO DAILY Prescribed by: NIRU FELTON on 11/25/22 1104 Review of Systems Review of Systems Constitutional: No chills, No fever EENTM: No Symptoms Reported Respiratory: No Symptoms Reported Cardiovascular: No Symptoms Reported Gastrointestinal: See HPI Genitourinary: See HPI Musculoskeletal: see HPI Skin: No change in color Psychiatric/Neurological: No Symptoms Reported Past Vvlhenr-Dizbyc-Ljlsdf Hx Patient Social History Tobacco Use?: No Substance use?: No Past Medical History Surgery/Hospitalization HX: Kidney stones Surgeries: Yes (tubes in ears) Respiratory: No Cardiac: No Neurological: No Genitourinary: Yes Kidney Stones Gastrointestinal: No Musculoskeletal: No Endocrine: No HEENT: No Cancer: No Psychosocial: No Integumentary: No Blood Disorders: No Adverse Reaction/Blood Tranf: No Physical Exam Vital Signs Vital Signs - First Documented 11/25/22 09:52 Temp 36.4 Pulse 68 Resp 16 B/P (MAP) 135/78 (97) O2 Delivery Room Air Capillary Refill : Height/Weight/BMI Height: 6'3.00" Weight: 175lbs. oz. [id number]; 23.00 BMI Method:Stated General Appearance: WD/WN, mild distress HEENT: PERRL/EOMI Respiratory: chest non-tender, lungs clear, normal breath sounds, no respiratory distress, no accessory muscle use Cardiovascular: normal peripheral pulses, regular rate, rhythm Gastrointestinal: normal bowel sounds, soft, no pulsatile mass; No distended; guarding; No rebound; tenderness (LLQ) Rectal: deferred Extremities: normal range of motion, non-tender, normal capillary refill Back: no CVA tenderness Neurologic/Psychiatric: alert, oriented x 3 Skin: normal color, warm/dry Progress/Results/Core Measures Results/Orders Lab Results Laboratory Tests Test 11/25/22 10:14 11/25/22 10:56 Range/Units White Blood Count 4.0 L 4.3-11.0 10^3/uL Red Blood Count 5.09 4.30-5.52 10^6/uL Hemoglobin 15.5 13.3-17.7 g/dL Hematocrit 45 40-54 % Mean Corpuscular Volume 89 80-99 fL Mean Corpuscular Hemoglobin 31 25-34 pg Mean Corpuscular Hemoglobin Concent 34 32-36 g/dL Red Cell Distribution Width 12.1 10.0-14.5 % Platelet Count 238 130-400 10^3/uL Mean Platelet Volume 8.8 L 9.0-12.2 fL Immature Granulocyte % (Auto) 0 % Neutrophils (%) (Auto) 54 42-75 % Lymphocytes (%) (Auto) 33 12-44 % Monocytes (%) (Auto) 8 0-12 % Eosinophils (%) (Auto) 4 0-10 % Basophils (%) (Auto) 1 0-10 % Neutrophils # (Auto) 2.2 1.8-7.8 10^3/uL Lymphocytes # (Auto) 1.3 1.0-4.0 10^3/uL Monocytes # (Auto) 0.3 0.0-1.0 10^3/uL Eosinophils # (Auto) 0.1 0.0-0.3 10^3/uL Basophils # (Auto) 0.0 0.0-0.1 10^3/uL Immature Granulocyte # (Auto) 0.0 0.0-0.1 10^3/uL Sodium Level 142 135-145 MMOL/L Potassium Level 4.1 3.6-5.0 MMOL/L Chloride Level 105 98-107 MMOL/L Carbon Dioxide Level 24 21-32 MMOL/L Anion Gap 13 5-14 MMOL/L Blood Urea Nitrogen 13 7-18 MG/DL Creatinine 0.97 0.60-1.30 MG/DL Estimat Glomerular Filtration Rate 112 BUN/Creatinine Ratio 13 Glucose Level 102 70-105 MG/DL Calcium Level 10.0 8.5-10.1 MG/DL Corrected Calcium 8.5-10.1 MG/DL Total Bilirubin 0.9 0.1-1.0 MG/DL Aspartate Amino Transf (AST/SGOT) 15 5-34 U/L Alanine Aminotransferase (ALT/SGPT) 14 0-55 U/L Alkaline Phosphatase 68 40-136 U/L Total Protein 6.9 6.4-8.2 GM/DL Albumin 4.7 H 3.2-4.5 GM/DL Lipase 26 8-78 U/L Urine Color YELLOW Urine Clarity TURBID Urine pH 6.5 5-9 Urine Specific [place] >=1.030 1.016-1.022 Urine Protein 2+ H NEGATIVE Urine Glucose (UA) NEGATIVE NEGATIVE Urine Ketones NEGATIVE NEGATIVE Urine Nitrite NEGATIVE NEGATIVE Urine Bilirubin 1+ H NEGATIVE Urine Urobilinogen 1.0 < = 1.0 MG/DL Urine Leukocyte Esterase TRACE H NEGATIVE Urine RBC (Auto) 3+ H NEGATIVE Urine RBC >100 H /HPF Urine WBC 2-5 /HPF Urine Squamous Epithelial Cells NONE /HPF Urine Crystals PRESENT H /LPF Urine Amorphous Sediment MOD LENY URATES H /LPF Urine Bacteria FEW H /HPF Urine Casts NONE /LPF Urine Mucus LARGE H /LPF Urine Culture Indicated YES My Orders Orders - NIRU FELTON MD Comprehensive Metabolic Panel (11/25/22 09:58) Lipase (11/25/22 09:58) Ua Culture If Indicated (11/25/22 09:58) Ed Iv/Invasive Line Start (11/25/22 09:58) Cbc With Automated Diff (11/25/22 09:58) Ct Abdomen/Pelvis Wo (11/25/22 09:58) Ns Iv 1000 Ml (Ns Iv 1000 Ml) (11/25/22 09:58) Ketorolac Injection (Ketorolac Injection (11/25/22 09:58) Ondansetron Injection (Ondansetron Inj (11/25/22 09:58) Tamsulosin Capsule (Flomax Capsule) (11/25/22 10:46) Strain Urine (11/25/22 11:12) Urine Culture (11/25/22 10:56) Vital Signs/I&O 11/25/22 09:52 Temp 36.4 Pulse 68 Resp 16 B/P (MAP) 135/78 (97) O2 Delivery Room Air Progress Progress Note #1: Progress Note Potential diagnosis of renal colic, diverticulitis, colitis, cystitis, pyelonephritis. Obtain urinalysis to check for blood and infection. I reviewed the patient prescription monitoring program and he did not have any active or recent controlled substances prescribed to him. Establish peripheral IV access and send labs for complete blood count, comprehensive metabolic profile, lipase. CT scan of the abdomen and pelvis without IV contrast to look for possible kidney stones or pathology to be causing the left flank and left lower quadrant pain. Administer normal saline 1 L IV fluid bolus for hydration, Zofran 4 mg IV for nausea and vomiting, Toradol 15 mg IV for pain. Advised the patient if the pain was not getting controlled with that after 20 or 30 minutes we would increase to a narcotic pain medicine. He initially states that he does not feel like he can urinate so will try after he is getting IV fluids. Progress Note #2: Time: 10:44 Progress Note My personal interpretation and review the CT scan of the abdomen and pelvis without IV contrast shows mild to moderate hydroureter and mild hydronephrosis on the left side with a 3.5 x 2.8 cm kidney stone approximately three fourths of the way through the ureter. Complete blood count shows a normal white blood cell count of 4 with hemoglobin of 15.5. He has normal platelets of 238. Comprehensive metabolic profile and urinalysis still pending. Progress Note #3: Time: 11:01 Progress Note I reviewed the radiologist report of the CT scan of the abdomen pelvis without IV contrast. The reported a 5 mm kidney stone in the distal ureter. There is hydronephrosis and hydroureter. There are small stones in bilateral kidneys. His pain was rated at 7 out of 10 after the Toradol. However he was initially refusing any additional narcotic pain medicine. Administer Flomax 0.4 mg p.o. x1 to try and help with spasms and dilating the ureter. Encouraged to strain his urine to look for when the stone passes. We will plan on giving him information for Dr. Almanzar with urology through the [facility]. His comprehensive metabolic profile did not show any acute electrolyte abnormalities and had normal renal function as well as a normal lipase. Progress Note #4: Time: 11:38 Progress Note Urinalysis is concentrated and has a large amount of blood in it. He has negative nitrites and only a few bacteria so unlikely that it is infected. A culture was reflexed so if it shows that he needs an antibiotic we will call after the results come back. Discharge with Flomax and hydrocodone to help with pain and relax in the ureter. Encourage fluids and hydration. Given information for urology for follow-up. Advised to strain his urine until he sees a stone pass and/or the pain resolves. Counseled on follow-up and return precautions. Diagnostic Imaging Diagonstic Imaging: CT Plain Films/CT/US/NM/MRI: abdomen, pelvis Comments NAME: JOE MOJICA MED REC#: [id number] PT STATUS: REG ER : 2000 PHYSICIAN: NIRU FELTON MD ADMIT DATE: 11/25/22/ER FS Signed Date of Exam:11/25/22 CT ABDOMEN/PELVIS WO INDICATION: Left flank pain, history of stones. TECHNIQUE: Multiple contiguous axial images were obtained through the abdomen and pelvis without the use of intravenous contrast. Auto Exposure Controls were utilized during the CT exam to meet ALARA standards for radiation dose reduction. COMPARISON: 06/29/2018. FINDINGS: The visualized portions of the lung bases are clear. There are no pleural fluid collections. There is no free intraperitoneal air. The liver and gallbladder are normal. The spleen, adrenals, and pancreas are normal. The right kidney appears normal except for a tiny nonocclusive stone in the mid to upper pole. The left kidney shows a small intrarenal calculus in the upper pole. There is left hydronephrosis and hydroureter down to the level of a stone in the distal ureter in the mid pelvis measuring about 5 mm. There is no retroperitoneal mass or adenopathy. There is no ascites or abnormal fluid collection. The visualized bowel loops appear unremarkable. There is no pelvic mass or free fluid. IMPRESSION: There is left hydronephrosis and hydroureter down to the level of a 5 mm stone in the left ureter at the level of the mid pelvis. There are tiny intrarenal calculi in both kidneys. There is no other significant finding. Dictated by: Dictated on workstation # [id number] Dict: 11/25/22 1040 Trans: 11/25/22 1050 [id number] Interpreted by: WALKER JAEGER MD Electronically signed by: WALKER JAEGER MD 11/25/22 1050 Reviewed: Reviewed by Ri Departure Impression Primary Impression: Renal colic on left side Additional Impressions: Left lower quadrant abdominal pain Acute left flank pain Calculus of distal left ureter Disposition: HOME, SELF-CARE Condition: Stable Departure-Patient Inst. Decision time for Depature: 11:39 Referrals: NO,LOCAL PHYSICIAN (PCP) Primary Care Physician [facility] Patient Instructions: Flank Pain ED, Opioids for Short-Term Treatment of Pain ED, Kidney Stone, Adult ED, Kidney Stone Diet, How to Strain Your Urine Add. Discharge Instructions: Strain your urine to see when the kidney stone passes. Use the Flomax or tamsulosin to help with spasms and to relax the ureter to make it easier for the stone to pass. For severe pain use the hydrocodone with acetaminophen 5/325 1 every 4 hours as needed for severe pain. This can cause constipation so take it with food and consider taking MiraLAX or a stimulant laxative to help prevent constipation. Make sure you are drinking lots of water and electrolyte drinks. Avoid carbonated and caffeinated drinks as they could contribute to more kidney stones. If the pain is persisting and not improving and you are not seen the stone pass within the next 5 to 7 days follow-up with urology. One of the options for locally is Dr. Almanzar with the [facility]. He does come to see patients periodically here in the [place] area. His scheduling phone number is [phone] All discharge instructions reviewed with patient and/or family. Voiced understanding. Scripts Hydrocodone/Acetaminophen (Hydrocodone-Acetamin 5-325 mg) 5 Mg-325 Mg Tablet 1 TAB PO Q4H PRN for PAIN SEVERE for 5 Days, #30 TAB 0 Refills Prov: NIRU FELTON MD 11/25/22 Tamsulosin HCl (Flomax) 0.4 Mg Cap 0.4 MG PO DAILY for Renal Colic for 5 Days, #5 CAP 0 Refills Prov: NIRU FELTON MD 11/25/22 NIRU FELTON MD Nov 25, 2022 10:06
[2022-11-25 10:31] LABS: BASOPHILS % (AUTO) 1 % (0-10); EOSINOPHILS # (AUTO) 0.1 10^3/uL (0.0-0.3); EOSINOPHILS % (AUTO) 4 % (0-10); HEMATOCRIT 45 % (40-54); HEMOGLOBIN 15.5 g/dL (13.3-17.7); LYMPHOCYTES # (AUTO) 1.3 10^3/uL (1.0-4.0); LYMPHOCYTES % (AUTO) 33 % (12-44); MEAN CORPUSCULAR HEMOGLOBIN 31 pg (25-34); MEAN CORPUSCULAR HGB CONC 34 g/dL (32-36); MEAN CORPUSCULAR VOLUME 89 fL (80-99); MEAN PLATELET VOLUME 8.8 fL (9.0-12.2); MONOCYTES # (AUTO) 0.3 10^3/uL (0.0-1.0); MONOCYTES % (AUTO) 8 % (0-12); NEUTROPHILS # (AUTO) 2.2 10^3/uL (1.8-7.8); NEUTROPHILS % (AUTO) 54 % (42-75); PLATELET COUNT 238 10^3/uL (130-400)
[2022-11-25] MEDS ORDERED: TAMSULOSIN 0.4 MG (FLOMAX) CAP PO STA (10:46)
--- NOTE | 2022-11-25 10:46 | Diagnostic Imaging Report ---
INDICATION: Left flank pain, history of stones. TECHNIQUE: Multiple contiguous axial images were obtained through the abdomen and pelvis without the use of intravenous contrast. Auto Exposure Controls were utilized during the CT exam to meet ALARA standards for radiation dose reduction. COMPARISON: 06/29/2018. FINDINGS: The visualized portions of the lung bases are clear. There are no pleural fluid collections. There is no free intraperitoneal air. The liver and gallbladder are normal. The spleen, adrenals, and pancreas are normal. The right kidney appears normal except for a tiny nonocclusive stone in the mid to upper pole. The left kidney shows a small intrarenal calculus in the upper pole. There is left hydronephrosis and hydroureter down to the level of a stone in the distal ureter in the mid pelvis measuring about 5 mm. There is no retroperitoneal mass or adenopathy. There is no ascites or abnormal fluid collection. The visualized bowel loops appear unremarkable. There is no pelvic mass or free fluid. IMPRESSION: There is left hydronephrosis and hydroureter down to the level of a 5 mm stone in the left ureter at the level of the mid pelvis. There are tiny intrarenal calculi in both kidneys. There is no other significant finding. Dictated by: Dictated on workstation # [id number]
[2022-11-25 10:48] LABS: ALANINE AMINOTRANSFERASE 14 U/L (0-55); ALBUMIN 4.7 GM/DL (3.2-4.5); ALKALINE PHOSPHATASE 68 U/L (40-136); BILIRUBIN,TOTAL 0.9 MG/DL (0.1-1.0); BUN/CREATININE RATIO 13; CARBON DIOXIDE 24 MMOL/L (21-32); CHLORIDE 105 MMOL/L (98-107); CREATININE SERUM 0.97 MG/DL (0.60-1.30); GFR ESTIMATED 112; GLUCOSE 102 MG/DL (70-105); LIPASE 26 U/L (8-78); POTASSIUM 4.1 MMOL/L (3.6-5.0); SODIUM 142 MMOL/L (135-145); TOTAL PROTEIN 6.9 GM/DL (6.4-8.2)
[2022-11-25 11:02] LABS: CLARITY,URINE TURBID; COLOR,URINE YELLOW; GLUCOSE, URINE (UA) NEGATIVE (NEGATIVE); KETONES,URINE NEGATIVE (NEGATIVE); LEUKOCYTE ESTERASE ,URINE TRACE (NEGATIVE); NITRITE,URINE NEGATIVE (NEGATIVE); PH,URINE 6.5 (5-9); PROTEIN,URINE 2+ (NEGATIVE)
[2022-11-25] MEDS ORDERED: TMSL.4C PO (11:04)
[2022-11-25] MEDS ORDERED: ACHD5005 PO (11:04)
[2022-11-25 11:18] LABS: BACTERIA,URINE FEW /HPF; BILIRUBIN,URINE 1+ (NEGATIVE); RBC,URINE >100 /HPF
[2022-11-25 11:19] LABS: AMORPHOUS SEDIMENT,UR MOD AMOR URATES /LPF
== END 2022-11-25 11:45 | disposition home or self-care (01) ==
LOC: EDUNIT# 09:48 → ER FS 09:49
DX: N13.2 Hydronephrosis with renal and ureteral calculous obstruction (principal); Z28.310 Unvaccinated for COVID-19
CPT/HCPCS: 36415; 74176; 80053; 81000; 83690; 85025; 87088